=== PATIENT | male | born 1970 | race Caucasian/White ===

== ENCOUNTER 2017-09-27 20:07 | Emergency (ER) | payer MEDICAID ==
[2017-09-27 21:44] VITALS: BP 150/100
== END 2017-09-27 21:44 | disposition home or self-care (01) ==
LOC: ED 20:07
DX: S05.02XA Injury of conjunctiva and corneal abrasion without foreign body, left eye, initial encounter (principal); E11.9 Type 2 diabetes mellitus without complications; I10 Essential (primary) hypertension; Z79.4 Long term (current) use of insulin; Z79.84 Long term (current) use of oral hypoglycemic drugs; X58.XXXA Exposure to other specified factors, initial encounter; Y93.89 Activity, other specified; Y99.8 Other external cause status; Y92.89 Other specified places as the place of occurrence of the external cause